=== PATIENT | female | born 1965 | race Caucasian/White ===

== ENCOUNTER → 2019-08-27 | Outpatient (CLI) | payer OTHER ==
[~2019-08-27] MED LIST: MARAJUANA
== END | disposition home or self-care (01) ==
LOC: LAB SHORT 14:21 → LAB 14:21
DX: R30.9 Painful micturition, unspecified (principal)
CPT/HCPCS: 87086

== ENCOUNTER → 2020-05-15 | Outpatient (CLI) | payer OTHER | END | disposition home or self-care (01) | LOC: LAB SHORT 13:38 → LAB 13:38 | DX: L72.0 Epidermal cyst (principal) | CPT/HCPCS: 87071; 87075; 87205; 88304 ==

== ENCOUNTER 2020-08-05 07:19 | Day surgery (SDC) | payer OTHER ==
[~2020-08-05] VITALS: Ht 162.6 cm; Wt 72.8 kg
[~2020-08-05 07:19] MED LIST changes: +CITA20 PO; +NAPR500 PO; +OMEP20ER
[2020-08-05] MEDS ORDERED: SPIRONOLACTONE25 MG PO (08:06)
[2020-08-05] MEDS ORDERED: Vitamin D2000 UNIT PO (08:07)
[2020-08-05] MEDS ORDERED: DIPH50 PO (08:07)
[2020-08-05] MEDS ORDERED: LOSA50 PO (08:07)
--- NOTE | 2020-08-05 09:50 | NUR ---
08/05/20 0950 Griselda Tabor PT AWAKE, ALERT, ORIENTED. PT SITTING ON RECLINER ENJOYING MOUNTAIN DUE. PT DENEIS PAIN OR N/V AT THIS TIME. PT COMMUNICATES CLEARLY. ICE TO RIGHT FOREARM. WILL CONTINUE TO MONITOR.
== END 2020-08-05 10:08 | disposition home or self-care (01) ==
LOC: ORSCSDS 07:19
PROVIDERS: Orthopaedic Surgery
PROC: 0JBG0ZZ Excision of Right Lower Arm Subcutaneous Tissue and Fascia, Open Approach (ICD-10-PCS; principal; 2020-08-05 08:30)
DX: L72.8 Other follicular cysts of the skin and subcutaneous tissue (principal); I10 Essential (primary) hypertension; K21.9 Gastro-esophageal reflux disease without esophagitis; Z79.899 Other long term (current) drug therapy
CPT/HCPCS: J0171; J0690; J1100; J1885; J2250; J2405; J2704; J3010; J7120

== ENCOUNTER 2021-04-05 13:07 | Inpatient (IN) | payer OTHER ==
[~2021-04-05] VITALS: Ht 162.6 cm; Wt 74.5 kg
[~2021-04-05 13:07] MED LIST changes: +DIPH50 PO; +LOSA50 PO; +SPIRONOLACTONE25 MG PO; +Vitamin D2000 UNIT PO
[2021-04-05 14:19] LABS: Hematocrit 39.2 % (33.0-51.0); Hemoglobin 13.5 g/dL (11.5-16.0); Mean Corpuscular HGB 30.3 pg (26.0-34.0); Mean Corpuscular HGB Conc 34.4 g/dL (31.5-36.5); Mean Corpuscular Volume 88 fL (80-100); Mean Platelet Volume 9.6 fL (9.1-12.4); Platelet Count 221 K/mm3 (150-400); RDW Coefficient Variation 12.8 % (11.7-14.2); RDW Standard Deviation 41.6 fL (35.1-46.3); Red Blood Cell Count 4.45 M/mm3 (3.80-5.20)
[2021-04-05 15:00] LABS: Alanine Aminotransfer (ALT/SGP 19 U/L (12-78); Albumin, Blood 2.9 g/dL (3.4-5.0); Albumin/Globulin Ratio 1.1 (0.8-1.8); Alk Phos 65 U/L (50-136); Anion Gap 9 mmol/L (6-16); Aspartate Aminotrans (AST/SGOT 14 U/L (12-37); Bilirubin, Total 0.6 mg/dL (0.1-1.0); Blood Urea Nitrogen 13 mg/dL (8-24); Bun/Creatinine Ratio 13.4 (12.0-20.0); CHOL/HDL RATIO 3.6; CO2, Blood 22 mmol/L (21-32); Calcium, Blood 7.4 mg/dL (8.5-10.1); Chloride, Blood 107 mmol/L (98-108); Cholesterol 149 mg/dL (50-200); Creatinine, Blood 0.97 mg/dL (0.40-1.00); Globulin, Blood 2.7 g/dL (2.2-4.0); Glomerular Filtration Rate >60 (60-); Glucose, Blood 156 mg/dL (70-99); HDL Cholesterol 41 mg/dL (>39); LDL/HDL RATIO 2.4; Low Density Lipoprotein Chol 100 mg/dL (0-110); Magnesium, Blood 1.5 mg/dL (1.6-2.4); Potassium, Blood 2.6 mmol/L (3.5-5.5); Sodium, Blood 138 mmol/L (136-145); Total Protein, Blood 5.6 g/dL (6.4-8.2); Triglycerides 39 mg/dL (30-160); Very Low Density Lipoprot Chol 7 mg/dL (6-32)
[2021-04-05 15:04] LABS: Troponin I 0.881 ng/mL (0.000-0.040)
--- NOTE | 2021-04-05 15:36 | NUR ---
ADMISSION TO ICU PT ADMITTED POST PCI AT 1430. ONE STENT TO MID-PRO RCA. 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 PT DENIES PAIN AT THIS TIME. A&O X4. FOLLOWS COMMANDS. LUNGS CLEAR. SPEAKING IN FULL SENTANCES. TR BAND TO RIGHT RADIAL, 12 ML OF AIR. SOFT, NO HEMATOMA, SWELLING OR ECCHYMOSIS NOTED. SLIGHT DISCOLORATION OF FINGERS, CAP REFILL <3 SEC. DENIES NUMBNESS OR TINGLING. BP STABLE. SR ON MONITOR. EKG DONE AND SHOWN TO DR SAWYER. K AND MAG REPLACED. WILL CONTINUE TO MONITOR.
--- NOTE | 2021-04-05 17:14 | NUR ---
Echocardiogram completed.
--- NOTE | 2021-04-05 17:38 | NUR ---
SHIFT SUMMARY PT ADMITTED POST PCI. TR BAND TO RIGHT RADIAL. 6 ML OF AIR OUT AT THIS TIME. SCANT AMOUNT OF OOZING FROM BAND, WILL SLOW RATE OF DEFLATION. NO HEMATOMA OR BRUISING. PT DENIES CHEST PAIN. TOLERATING DIET WELL. VSS. WILL CONTINUE TO MONITOR UNTIL REPORT TO ONCOMING NURSE.
--- NOTE | 2021-04-05 19:15 | NUR ---
ASSESSMENT/ASSUMED CARE PT SITTING UP IN BED WATCHING TV. DENIES PAIN OR DISCOMFORT. UP TO BSC WITH STANDBY ASSIST FOR LINES. VOIDED CLEAR YELLOW URINE. BACK TO BED, PT MOVING SELF IN BED, GAIT STEADY. LUNGS CLEAR ON ROOMAIR, DENIES SOB AND COUGH. HEART RATE REGULAR IN THE 60-70'S. BP STABLE. NO EDEMA. TR BAND TO RIGHT WRIST WITH SLIGHT OLD DRAINAGE NOTED. IV 20G TO RIGHT FOREARM WITH NS AT 100 ML/HR SITE CLEAR. IV 18G TO LEFT AC SALINE LOCKED, FLUSHED WITHOUT DIFFICULTY, SITE CLEAR. PT MOVES ALL EXT WELL.
--- NOTE | 2021-04-05 19:46 | NUR ---
TR BAND REMOVED 2 CC AIR FROM TR BAND. ARM BOARD ON.
--- NOTE | 2021-04-05 20:56 | NUR ---
CALL TO DR SAWYER REGARDING PT HAVING A HEADACHE, RECEIVED ORDERS FOR TYLENOL
--- NOTE | 2021-04-05 22:38 | NUR ---
TR BAND ALL AIR REMOVED FROM TR BAND, SITE CLEAR. ARM BOARD ON. PT UP TO BATHROOM THAN BACK TO BED. TR BAND STILL STABLE.
--- NOTE | 2021-04-06 00:24 | NUR ---
TR BAND TR BAND REMOVED. SITE CLEAR, NO BLEEDING, NO HEMATOMA. AREA CLEANED AND NIKKY DRSG APPLIED. PT DENIES PAIN OR DISCOMFORT. VSS.
--- NOTE | 2021-04-06 04:08 | NUR ---
ASSESSMENT PT SITTING UP IN BED ON PHONE. DENIES PAIN AT THIS TIME. PT UP TO BSC THAN BACK TO BED. GAIT STEADY. EKG DONE. PT STATES,"DO YOU THINK I CAN GO HOME TODAY? I WOULD BE OKAY STAYING IF I COULD ONLY HAVE A SODA POP. I JUST KNOW MY HEADACHE IS GOING TO COME BACK". VSS. RIGHT WRIST DRSG CD&I. NO BLEEDING OR HEMATOMA NOTED. ARM BOARD IN PLACE.
--- NOTE | 2021-04-06 06:07 | NUR ---
SHIFT SUMMARY PT AWAKE SITTING UP IN BED WATCHING TV. DENIES PAIN OR DISCOMFORT. MED WITH TYLENOL ONCE DURING THE NIGHT FOR A HEADACHE WITH GOOD RESULTS. VSS. UP TO BSC WITH STANDBY ASSIST FOR LINES, GAIT STEADY. TR BAND REMOVED FROM RIGHT WRIST AND DRSG APPLIED. NO BLEEDING OR HEMATOMA NOTED. ARM BOARD IN PLACE. IV SALINE LOCKED. EKG DONE THIS AM. NO ACUTE CHANGE. REPORT TO ON COMING NURSE.
--- NOTE | 2021-04-06 07:43 | NUR ---
ASSUMED CARE REPORT FROM SARAN BROWER AT 0700. PT RESTING IN BED. A&O X 4. LUNGS CLEAR. SPEAKING IN FULL SENTANCES. DENIES CHEST PAIN. RIGHT RADIAL SITE, NIKKY IN PLACE c OPSITE. DRESSING C/D/I. SOFT, NON TENDER. NO HEMATOMA OR BRUISING NOTED. PT TRANSFERS INDEPENDENTLY. CALL LIGHT IN REACH. SR ON MONITOR, RATE 60'S. BP STABLE. DR HANCOCK ROUNDED, STATUS CHANGED TO MED/TELE. OK FOR MOUNTAIN DEW. LABS PENDING. WILL CONTINUE TO MONITOR.
[2021-04-06 07:46] LABS: BASOPHILS ABSOLUTE AUTO 0.07 K/mm3 (0.00-0.23); BASOPHILS PERCENT AUTO 1 % (0-2); EOSINOPHILS ABSOLUTE AUTO 0.13 K/mm3 (0.00-0.68); EOSINOPHILS PERCENT AUTO 1 % (0-6); Hematocrit 42.9 % (33.0-51.0); Hemoglobin 14.5 g/dL (11.5-16.0); IMMATURE GRAN ABSOLUTE AUTO 0.05 K/mm3 (0.00-0.10); IMMATURE GRAN PERCENT AUTO 0 % (0-1); LYMPHOCYTES PERCENT AUTO 20 % (21-46); MONOCYTES ABSOLUTE AUTO 0.53 K/mm3 (0.16-1.47); MONOCYTES PERCENT AUTO 5 % (4-13); Mean Corpuscular HGB 30.1 pg (26.0-34.0); Mean Corpuscular HGB Conc 33.8 g/dL (31.5-36.5); Mean Corpuscular Volume 89 fL (80-100); Mean Platelet Volume 9.7 fL (9.1-12.4); NEUTROPHILS ABSOLUTE AUTO 8.67 K/mm3 (1.96-9.15); NEUTROPHILS PERCENT AUTO 74 % (41-73); Platelet Count 227 K/mm3 (150-400); RDW Coefficient Variation 13.1 % (11.7-14.2); Red Blood Cell Count 4.81 M/mm3 (3.80-5.20); White Blood Cell Count 11.75 K/mm3 (4.00-11.30)
[2021-04-06 08:22] LABS: Anion Gap 3 mmol/L (6-16); Blood Urea Nitrogen 13 mg/dL (8-24); Bun/Creatinine Ratio 15.8 (12.0-20.0); CHOL/HDL RATIO 3.5; CO2, Blood 27 mmol/L (21-32); Calcium, Blood 8.1 mg/dL (8.5-10.1); Chloride, Blood 109 mmol/L (98-108); Cholesterol 163 mg/dL (50-200); Creatinine, Blood 0.82 mg/dL (0.40-1.00); Glomerular Filtration Rate >60 (60-); Glucose, Blood 88 mg/dL (70-99); HDL Cholesterol 47 mg/dL (>39); LDL/HDL RATIO 2.2; Low Density Lipoprotein Chol 104 mg/dL (0-110); Potassium, Blood 4.2 mmol/L (3.5-5.5); Sodium, Blood 139 mmol/L (136-145); Triglycerides 60 mg/dL (30-160); Very Low Density Lipoprot Chol 12 mg/dL (6-32)
--- NOTE | 2021-04-06 17:00 | NUR ---
SHIFT SUMMARY NO ACUTE CHANGES THIS SHIFT. ASSESSMENT REMAINS SAME. STATUS CHANGE TO MED c TELE. ANTICIPATE D/C TOMORROW. PT CONTINUES TO DENY CHEST PAIN. INDEPENDENT IN ROOM. HOME MEDS ORDERED THIS SHIFT. DRESSING TO RIGHT RADIAL ACCESS UNCHANGED. VSS. NSR, RATE 60'S. WILL CONTINUE TO MONITOR UNTIL REPORT TO ONCOMING NURSE.
--- NOTE | 2021-04-06 19:05 | NUR ---
ASSUMPTION OF CARE RECEIVED REPORT FROM RETA BROWER. ASSUMED CARE OF PATIENT. PATIENT UP IN BED, A/O. DENIED NEEDS OR DISCOMFORTS. DRINKING MOUNTAIN DEW AND WATCHING TELEVISION. VITALS STABLE PER CONTINUOUS TELEMETRY. REVIEWED PLAN WITH PATIENT REGARDING MEDICATIONS AND VITAL SIGN MONITORING. PATIENT STATED SHE IS READY TO GO HOME AND IS FEELING GREAT. AMBULATED AROUND ROOM INDEPENDENTLY WITH STEADY GAIT. CALL LIGHT IN REACH. WILL REVIEW ORDERS AND TREAT PRESCRIBED.
--- NOTE | 2021-04-07 | NUR ---
REASSESSMENT NO ACUTE CHANGES FROM PREVIOUS ASSESSMENT. VITALS STABLE. PATIENT EASILY AWOKE AND DENIED NEEDS OR DISCOMFORTS. CALL LIGHT IN REACH.
--- NOTE | 2021-04-07 04:13 | NUR ---
REASSESSMENT NO ACUTE CHANGES FROM PREVIOUS ASSESSMENT. VITALS STABLE. COFFEE PROVIDED PER PATIENT'S REQUEST. CALL LIGHT IN REACH.
[2021-04-07 07:52] LABS: BASOPHILS ABSOLUTE AUTO 0.05 K/mm3 (0.00-0.23); BASOPHILS PERCENT AUTO 1 % (0-2); EOSINOPHILS ABSOLUTE AUTO 0.13 K/mm3 (0.00-0.68); EOSINOPHILS PERCENT AUTO 1 % (0-6); Hematocrit 44.9 % (33.0-51.0); Hemoglobin 15.4 g/dL (11.5-16.0); IMMATURE GRAN ABSOLUTE AUTO 0.02 K/mm3 (0.00-0.10); IMMATURE GRAN PERCENT AUTO 0 % (0-1); LYMPHOCYTES ABSOLUTE AUTO 2.31 K/mm3 (0.84-5.20); LYMPHOCYTES PERCENT AUTO 23 % (21-46); MONOCYTES ABSOLUTE AUTO 0.55 K/mm3 (0.16-1.47); MONOCYTES PERCENT AUTO 6 % (4-13); Mean Corpuscular HGB 30.6 pg (26.0-34.0); Mean Corpuscular HGB Conc 34.3 g/dL (31.5-36.5); Mean Corpuscular Volume 89 fL (80-100); Mean Platelet Volume 9.7 fL (9.1-12.4); NEUTROPHILS ABSOLUTE AUTO 7.03 K/mm3 (1.96-9.15); NEUTROPHILS PERCENT AUTO 70 % (41-73); Platelet Count 215 K/mm3 (150-400); RDW Standard Deviation 42.4 fL (35.1-46.3); Red Blood Cell Count 5.03 M/mm3 (3.80-5.20); White Blood Cell Count 10.09 K/mm3 (4.00-11.30)
--- NOTE | 2021-04-07 08:00 | NUR ---
PT A&OX4-SHE IS SITTING IN HER ROOM ALREADY DRESSED IN HER STREET CLOTHES. PT. DENIES CP OR SOB. BP 140'S/90'S- ROUTINE AM BP MEDS GIVEN. RIGHT RADIAL SITE CLEAR-ARM BOARD IN PLACE. DR. MIRZA CONTACTED REGARDING DISCHARGE MEDS-SPECIFICALLY, INQUIRED REGARDING MELVI INHIBITOR AND BETA MADISON-NO MED CHANGES AT THIS TIME. CASE MANAGEMENT CONTACTED TO SEE IF OHP WILL COVER BRILLINTA-IF NOT, DR. CORDOBA TO CHANGE PT TO [place]. ANTICIPATE DISCHARGE ONCE CASE MANAGEMENT RESOLVES THIS ISSUE.
[2021-04-07 08:08] LABS: Anion Gap 3 mmol/L (6-16); Blood Urea Nitrogen 9 mg/dL (8-24); CO2, Blood 29 mmol/L (21-32); Calcium, Blood 8.3 mg/dL (8.5-10.1); Chloride, Blood 108 mmol/L (98-108); Creatinine, Blood 0.82 mg/dL (0.40-1.00); Glomerular Filtration Rate >60 (60-); Glucose, Blood 94 mg/dL (70-99); Potassium, Blood 3.8 mmol/L (3.5-5.5); Sodium, Blood 140 mmol/L (136-145)
[2021-04-07] MEDS ORDERED: ASPI81CH PO (09:49)
[2021-04-07] MEDS ORDERED: ATOR80 PO (09:51)
[2021-04-07] MEDS ORDERED: CLOP75 PO (09:51)
[2021-04-07] MEDS ORDERED: CLOPIDOGREL300 M1 PO (09:53)
--- NOTE | 2021-04-07 10:45 | NUR ---
REVIEWED DISCHARGE INSTRUCTIONS WITH PT. PT VERBALIZES UNDERSTANDING.RX PHONED TO JD BY INOCENTE POLLARD.
--- NOTE | 2021-04-07 10:48 | NUR ---
PT DISCHARGE TO HOME. OUT- AMBULATORY PT REFUSED WHEELCHAIR. DISCHARGE INSTRUCTIONS AND BELONGINGS ON HAND.
== END 2021-04-07 10:45 | disposition home or self-care (01) | DRG 247 ==
LOC: ER 13:07 → ICUW 13:19 → ICUE 14:26
PROVIDERS: Emergency Medicine; ADMIT Internal Medicine Cardiovascular Disease
PROC: 027034Z Dilation of Coronary Artery, One Artery with Drug-eluting Intraluminal Device, Percutaneous Approach (ICD-10-PCS; principal; 2021-04-05)
PROC: 4A023N7 Measurement of Cardiac Sampling and Pressure, Left Heart, Percutaneous Approach (ICD-10-PCS; 2021-04-05)
PROC: B2111ZZ Fluoroscopy of Multiple Coronary Arteries using Low Osmolar Contrast (ICD-10-PCS; 2021-04-05)
DX: I21.19 ST elevation (STEMI) myocardial infarction involving other coronary artery of inferior wall (principal); I10 Essential (primary) hypertension; G89.29 Other chronic pain; M54.9 Dorsalgia, unspecified; F17.200 Nicotine dependence, unspecified, uncomplicated; E87.6 Hypokalemia; Z79.899 Other long term (current) drug therapy; Z88.5 Allergy status to narcotic agent
CPT/HCPCS: 36415; 76937; 80048; 80053; 80061; 83036; 83735; 84484; 85025; 85027; 85347; 86850; 86900; 86901; 93005; 93010; 93306; 93458; 96374; 99152; 99153; 99285-25; A9270; C1725; C1769; C1874; C1887; C1894; C9606; J0461; J1642; J1644; J2250; J2370; J3010; J3246; J3475; J7030; J7050; Q9967

== ENCOUNTER → 2021-08-16 | Outpatient (CLI) | payer OTHER ==
[~2021-08-16] MED LIST changes: +ASPI81CH PO; +ATOR80 PO; +CLOP75 PO; +CLOPIDOGREL300 M1 PO
== END | disposition home or self-care (01) ==
LOC: LAB 11:18 → LAB SHORT 11:18
DX: D48.5 Neoplasm of uncertain behavior of skin (principal)
CPT/HCPCS: 88305

== ENCOUNTER → 2021-10-12 | Outpatient (CLI) | payer OTHER | END | disposition home or self-care (01) | LOC: LAB 07:37 → LAB SHORT 07:37 | DX: C44.629 Squamous cell carcinoma of skin of left upper limb, including shoulder (principal); L57.8 Other skin changes due to chronic exposure to nonionizing radiation | CPT/HCPCS: 88305 ==

== ENCOUNTER 2023-07-06 06:19 | Day surgery (SDC) | payer OTHER ==
[~2023-07-06] VITALS: Ht 162.6 cm; Wt 81.8 kg
--- NOTE | 2023-07-06 06:43 | NUR ---
07/06/23 0643 Nadeen Fay CHARTED BY CARLTON MORALES
[2023-07-06] MEDS ORDERED: CODACE30 (06:48)
[2023-07-06 09:57] VITALS: BP 125/82
--- NOTE | 2023-07-06 10:03 | NUR ---
07/06/23 CADEN CAMACHO [address] REM[address] WILLIS EXPLAINS TO PT. ALSO, 1 POLYP WAS NOT ABLE TO ACCESS, WILL REFER TO [facility] TO HAVE REMOVED/REFERRAL. IV REMOVED- WNL- TOLERATED WELL- CANNULA INTACT
== END 2023-07-06 10:18 | disposition home or self-care (01) ==
LOC: ORSCSDS 06:19
PROVIDERS: Internal Medicine Gastroenterology
PROC: 3E0H8GC Introduction of Other Therapeutic Substance into Lower GI, Via Natural or Artificial Opening Endoscopic (ICD-10-PCS; principal; 2023-07-06 08:00)
PROC: 0DB78ZX Excision of Stomach, Pylorus, Via Natural or Artificial Opening Endoscopic, Diagnostic (ICD-10-PCS; principal; 2023-07-06 08:00)
PROC: 0DBL8ZX Excision of Transverse Colon, Via Natural or Artificial Opening Endoscopic, Diagnostic (ICD-10-PCS; principal; 2023-07-06 08:00)
PROC: 0DBM8ZX Excision of Descending Colon, Via Natural or Artificial Opening Endoscopic, Diagnostic (ICD-10-PCS; principal; 2023-07-06 08:00)
PROC: 0DBN8ZX Excision of Sigmoid Colon, Via Natural or Artificial Opening Endoscopic, Diagnostic (ICD-10-PCS; principal; 2023-07-06 08:00)
PROC: 0DBP8ZX Excision of Rectum, Via Natural or Artificial Opening Endoscopic, Diagnostic (ICD-10-PCS; principal; 2023-07-06 08:00)
DX: K62.5 Hemorrhage of anus and rectum (principal); K21.9 Gastro-esophageal reflux disease without esophagitis; K31.7 Polyp of stomach and duodenum; D12.3 Benign neoplasm of transverse colon; D12.5 Benign neoplasm of sigmoid colon; D12.8 Benign neoplasm of rectum; K63.5 Polyp of colon; K57.30 Diverticulosis of large intestine without perforation or abscess without bleeding; K64.4 Residual hemorrhoidal skin tags; Z83.71 Family history of colonic polyps; I10 Essential (primary) hypertension; Z87.891 Personal history of nicotine dependence; Z79.899 Other long term (current) drug therapy; Z79.82 Long term (current) use of aspirin
CPT/HCPCS: 88305; J2001; J2704; J7120

== ENCOUNTER 2024-05-23 06:24 | Day surgery (SDC) | payer OTHER ==
[~2024-05-23] VITALS: Ht 163 cm; Wt 82.6 kg
[2024-05-23] VITALS (13 sets, daily range): BP systolic 122–151; BP diastolic 14–100
[~2024-05-23 06:24] MED LIST changes: +Acetaminophen650 M1 PO; +BEANO PO; +CODACE30; -OMEP20ER; +OMEP20ER PO; +SPIR25 PO; +VITAMIN D350 MC3 PO
[2024-05-23] MEDS ORDERED: Lactated Ringer's 1,000 ML IV SCH (06:30)
[2024-05-23] MEDS ORDERED: CeFAZolin Sodium 2,000 MG in NS 100 ML IV SCH (06:30)
[2024-05-23] MEDS ORDERED: FentaNYL Citrate 50 MCG/ML 2 ML Injection ONE ×2 (07:33→09:33)
[2024-05-23] MEDS ORDERED: propofoL 20 ML IV ONE ×2 (07:33→08:13)
--- NOTE | 2024-05-23 07:33 | NUR ---
History, Chart, Medications and Allergies reviewed before start of procedure. Patient up to Ambulate independently. Gait steady. Pre-Op teaching done. Pt verbalizes understanding. Patient confirms NPO status and agrees with scheduled surgery. Patient reports completing Chlorhexadine shower X2 prior to admission to hospital. Surgical site prepped with 2% Chlorhexidine cloth wipe. Patient States Post-Procedure ride home has been arranged.
[2024-05-23] MEDS ORDERED: Midazolam HCl 1MG / ML 2ML Vial ONE (07:34)
[2024-05-23] MEDS ORDERED: Dexamethasone Sod Phos 10 MG/ML 1ML VIAL ONE (07:34)
[2024-05-23] MEDS ORDERED: Ondansetron HCl 2 MG / ML 2ML Vial ONE (07:34)
[2024-05-23] MEDS ORDERED: Rocuronium Bromide 10 MG/ML 5ML Injection IV ONE (07:34)
[2024-05-23] MEDS ORDERED: Phenylephrine HCl 100 MCG/ML-NS 10MLSYR (1MG/10ML) ONE (07:34)
[2024-05-23] MEDS ORDERED: Bupivacaine 0.5% Inj 10 ML Vial ONE (07:35)
[2024-05-23] MEDS ORDERED: ePHEDrine Sulfate 50 MG/ML 1ML Injection ONE (08:21)
[2024-05-23] MEDS ORDERED: Sugammadex Sodium 200 MG/2ML SDV (100 MG/ML) ONE (08:44)
[2024-05-23] MEDS ORDERED: Ketorolac Tromethamine 30mg Vial ONE (09:05)
[2024-05-23] MEDS ORDERED: OxyCODONE 5 mg/Acetamin 325 mg TABLET PO PRN (09:50)
--- NOTE | 2024-05-23 10:58 | NUR ---
Patient up to Ambulate independently. Gait steady. Discharge instructions reviewed with patient. Patient verbalizes understanding. Copy given to patient to take home, WELL FRIEND. Patient States Post-Procedure ride home has been arranged. Discharged via wheelchair to private car for ride home. PT INCISIONS C/D/I. GIVEN ICE PACK. REPORTS PAIN TOLERABLE AND READY TO GO HOME.
== END 2024-05-23 10:58 | disposition home or self-care (01) ==
LOC: ORSCMMR 06:24 → ORD 05-24 10:15 → ORSCMMR 05-24 10:30 → ORD 05-24 10:30
PROVIDERS: Surgery
PROC: 0WUF4JZ Supplement Abdominal Wall with Synthetic Substitute, Percutaneous Endoscopic Approach (ICD-10-PCS; principal; 2024-05-23 08:00)
DX: K43.6 Other and unspecified ventral hernia with obstruction, without gangrene (principal); K66.0 Peritoneal adhesions (postprocedural) (postinfection); I25.2 Old myocardial infarction; I25.10 Atherosclerotic heart disease of native coronary artery without angina pectoris; E78.5 Hyperlipidemia, unspecified; J44.9 Chronic obstructive pulmonary disease, unspecified; Z87.891 Personal history of nicotine dependence; F32.A Depression, unspecified; Z85.3 Personal history of malignant neoplasm of breast; Z85.828 Personal history of other malignant neoplasm of skin; I12.9 Hypertensive chronic kidney disease with stage 1 through stage 4 chronic kidney disease, or unspecified chronic kidney disease; N18.9 Chronic kidney disease, unspecified; Z79.82 Long term (current) use of aspirin; Z79.899 Other long term (current) drug therapy
CPT/HCPCS: A9270; C1781; J0690; J1100; J1885; J2250; J2371; J2405; J2704; J3010; J7120

== ENCOUNTER 2025-04-28 08:21 | Day surgery (SDC) | payer OTHER ==
[~2025-04-28] VITALS: Ht 162.6 cm; Wt 81.3 kg
[~2025-04-28 08:21] MED LIST changes: +propofoL 50 ML IV ONE
[2025-04-28] MEDS ORDERED: IRBE150 (08:40)
[2025-04-28] MEDS ORDERED: Lactated Ringer's 1,000 ML IV ONE (09:49)
[2025-04-28 11:03] VITALS: BP 123/80
== END 2025-04-28 10:55 | disposition home or self-care (01) ==
LOC: ORSCSDS 08:21
PROVIDERS: Internal Medicine Gastroenterology
PROC: 0DBL8ZX Excision of Transverse Colon, Via Natural or Artificial Opening Endoscopic, Diagnostic (ICD-10-PCS; principal; 2025-04-28 10:00)
DX: K92.1 Melena (principal); Z86.0100 Personal history of colon polyps, unspecified; D12.3 Benign neoplasm of transverse colon; K57.30 Diverticulosis of large intestine without perforation or abscess without bleeding; Z87.891 Personal history of nicotine dependence; K21.9 Gastro-esophageal reflux disease without esophagitis; Z79.899 Other long term (current) drug therapy; Z79.82 Long term (current) use of aspirin
CPT/HCPCS: 88305; J2704